=== PATIENT | female | born 1990 | race Caucasian/White ===

== ENCOUNTER 2023-04-29 15:11 | Inpatient (IN) | payer SELFPAY ==
[~2023-04-29] VITALS: Ht 167.6 cm; Wt 141.7 kg
[2023-04-29] MEDS ORDERED: VANCOMYCIN PER PHARMACY 0 MG IV SCH ×2 (15:45→17:15)
[2023-04-29] MEDS ORDERED: PIPERACILLIN-TAZOB 3.375GM 100 ML IV ONE (15:45)
[2023-04-29] MEDS ORDERED: ONDANSETRON ODT 4 MG TAB PO ONE (15:45)
[2023-04-29] MEDS ORDERED: HYDROcodone-ACET 10/325MG TAB PO ONE (15:45)
[2023-04-29 16:17] LABS: Basophils # (auto) 0.1 10 ^3/uL (0-0.2); Basophils % (auto) 0.3 % (0.0-2.0); Eosinophils # (auto) 0 10 ^3/uL (0-0.8); Hematocrit 34.8 % (36.0-46.0); Hemoglobin 11.6 g/dL (12.2-16.2); Mean Corpuscular Hemoglobin 27.6 pg (28.0-32.0); Mean Corpuscular Hgb Conc. 33.4 g/dL (32.0-36.0); Mean Corpuscular Volume 82.8 fL (80.0-100.0); Monocytes # (auto) 0.9 10 ^3/uL (0-1.3); Monocytes % (auto) 5.1 % (0.0-12.0); Neutrophils # (auto) 15.1 10 ^3/uL (1.6-8.6); Neutrophils % (auto) 88.6 % (37.0-80.0); Red Cell Distribution Width 13.2 % (11.8-14.3)
[2023-04-29 16:35] LABS: Alanine Aminotransferase 31 U/L (7-40); Alkaline Phosphatase 167 U/L (46-116); Anion Gap 7 (5-15); Aspartate Aminotransferase 20 U/L (13-40); Blood Urea Nitrogen 29 mg/dL (9-23); Calcium 7.7 mg/dL (8.7-10.4); Carbon Dioxide 20 mmol/L (20-30); Chloride 100 mmol/L (98-107); Glucose 328 mg/dL (74-106); Lipase 32 U/L (12-53); Potassium 3.9 mmol/L (3.5-5.1); Sodium 127 mmol/L (136-145)
[2023-04-29 16:36] LABS: Bilirubin, Total 0.6 mg/dL (0.2-1.0)
[2023-04-29] MEDS ORDERED: INSULIN LISPRO (HUMAN) 100 UNITS/ML ML SC ONE (17:00)
[2023-04-29] MEDS ORDERED: SODIUM CHLORIDE 0.9% 1,000 ML IV ONE ×2 (17:00→17:45)
[2023-04-29] MEDS ORDERED: DEXTROSE (50%) 50ML SYRG IV PRN (17:15)
[2023-04-29] MEDS ORDERED: VANCOMYCIN 1GM/200ML 200 ML IV ONE (17:30)
[2023-04-29 17:38] LABS: Triglycerides 120 mg/dL (< 150)
[2023-04-29 17:39] LABS: LDL Cholesterol 97 mg/dL (< 100)
[2023-04-29 17:40] LABS: Cholesterol 141 mg/dL (< 200); HDL Cholesterol 26 mg/dL (40-59)
[2023-04-29] MEDS ORDERED: CALCIUM GLUC 1,000mg/50ml-NS 50 ML IV ONE (17:45)
[2023-04-29] MEDS ORDERED: ACETAMINOPHEN 325 MG TAB PO PRN (17:45)
[2023-04-29] MEDS ORDERED: FUROSEMIDE 20 MG/2 ML VIAL IV ONE (18:15)
[2023-04-29] MEDS ORDERED: IOHEXOL 350 MG/ML 100ML IJ ONE (21:20)
[2023-04-29] MEDS: HYDROcodone-ACET 5/325MG TAB PO PRN (23:36)
[2023-04-29] MEDS: ASCORBIC ACID 500 MG TAB PO SCH (23:39)
[2023-04-29] MEDS: ACCU-CHEK COMFORT CURVE STRIP VI SCH (23:45)
[2023-04-29] MEDS: InsuLIN REG 1unit/0.01ml Soln (100units/ml) SC SCH (23:52)
[2023-04-30] MEDS: SODIUM CHLORIDE 0.9% 1,000 ML IV SCH ×3 (01:29→20:25)
[2023-04-30] MEDS: PIPERACILLIN-TAZOB 3.375GM 100 ML IV SCH ×3 (01:55→16:40)
[2023-04-30 06:05] LABS: Basophils # (auto) 0.1 10 ^3/uL (0-0.2); Basophils % (auto) 0.4 % (0.0-2.0); Eosinophils # (auto) 0 10 ^3/uL (0-0.8); Eosinophils % (auto) 0.1 % (0.0-7.0); Hematocrit 32.3 % (36.0-46.0); Hemoglobin 10.8 g/dL (12.2-16.2); Lymphocytes # (auto) 1.5 10 ^3/uL (0.4-5.4); Lymphocytes % (auto) 7.6 % (10.0-50.0); Mean Corpuscular Hemoglobin 27.6 pg (28.0-32.0); Mean Corpuscular Hgb Conc. 33.4 g/dL (32.0-36.0); Mean Corpuscular Volume 82.6 fL (80.0-100.0); Monocytes # (auto) 1.3 10 ^3/uL (0-1.3); Monocytes % (auto) 6.9 % (0.0-12.0); Neutrophils # (auto) 16.5 10 ^3/uL (1.6-8.6); Red Blood Cells 3.92 10^6/uL (4.0-5.20); Red Cell Distribution Width 13.6 % (11.8-14.3); White Blood Cell 19.3 10^3/uL (4.4-10.8)
[2023-04-30 06:26] LABS: Alanine Aminotransferase 27 U/L (7-40); Albumin 2.9 g/dL (3.2-4.8); Alkaline Phosphatase 154 U/L (46-116); Anion Gap 8 (5-15); Aspartate Aminotransferase 23 U/L (13-40); BUN/Creatinine Ratio 18.7 (10.0-20.0); Blood Urea Nitrogen 23 mg/dL (9-23); Calcium 7.8 mg/dL (8.7-10.4); Carbon Dioxide 19 mmol/L (20-30); Chloride 99 mmol/L (98-107); Glucose 172 mg/dL (74-106); Potassium 3.6 mmol/L (3.5-5.1); Sodium 126 mmol/L (136-145)
[2023-04-30 06:27] LABS: Bilirubin, Total 0.7 mg/dL (0.2-1.0); Total Protein 6.2 g/dL (5.7-8.2)
[2023-04-30] MEDS: ACCU-CHEK COMFORT CURVE STRIP VI SCH ×4 (06:43→21:53)
[2023-04-30] MEDS: InsuLIN REG 1unit/0.01ml Soln (100units/ml) SC SCH ×4 (06:43→21:49)
[2023-04-30] MEDS: ZINC SULFATE 220mg CAP or TAB PO SCH (10:31)
[2023-04-30] MEDS: MULTIPLE VITAMIN TAB PO SCH (10:31)
[2023-04-30] MEDS: HYDROcodone-ACET 5/325MG TAB PO PRN ×2 (10:31→21:26)
[2023-04-30] MEDS: ASCORBIC ACID 500 MG TAB PO SCH ×2 (10:31→21:26)
[2023-04-30] MEDS ORDERED: VANCOMYCIN PER PHARMACY 0 MG IV SCH (12:00)
[2023-04-30] MEDS: VANCOMYCIN 1GM/200ML 200 ML IV SCH ×2 (12:25→23:02)
[2023-04-30 16:26] VITALS: PULSE 116; RESP 19; O2SAT 99
[2023-04-30 17:13] VITALS: BP 161/93; PULSE 116; RESP 19; TEMP 98.6; O2SAT 99
[2023-04-30 20:00] VITALS: BP 147/71; PULSE 74; RESP 74; TEMP 37
[2023-04-30 22:00] VITALS: BP 155/97; PULSE 111; RESP 16; TEMP 99.4; O2SAT 97
[2023-05-01 05:00] VITALS: BP 133/69; PULSE 108; RESP 18; TEMP 98.4; O2SAT 99
[2023-05-01] MEDS: InsuLIN REG 1unit/0.01ml Soln (100units/ml) SC SCH ×4 (05:20→22:16)
[2023-05-01] MEDS: ACCU-CHEK COMFORT CURVE STRIP VI SCH ×4 (05:25→22:03)
[2023-05-01] MEDS: HYDROcodone-ACET 5/325MG TAB PO PRN ×2 (05:30→17:28)
[2023-05-01 07:30] LABS: Basophils # (auto) 0.1 10 ^3/uL (0-0.2); Basophils % (auto) 0.3 % (0.0-2.0); Eosinophils # (auto) 0 10 ^3/uL (0-0.8); Eosinophils % (auto) 0.2 % (0.0-7.0); Hematocrit 31.1 % (36.0-46.0); Hemoglobin 10.2 g/dL (12.2-16.2); Lymphocytes % (auto) 5.7 % (10.0-50.0); Mean Corpuscular Hemoglobin 27.8 pg (28.0-32.0); Mean Corpuscular Hgb Conc. 32.9 g/dL (32.0-36.0); Mean Corpuscular Volume 84.5 fL (80.0-100.0); Monocytes % (auto) 5.7 % (0.0-12.0); Neutrophils # (auto) 15.7 10 ^3/uL (1.6-8.6); Neutrophils % (auto) 88.1 % (37.0-80.0); Red Blood Cells 3.69 10^6/uL (4.0-5.20); Red Cell Distribution Width 13.3 % (11.8-14.3); White Blood Cell 17.8 10^3/uL (4.4-10.8)
[2023-05-01 07:49] LABS: Alanine Aminotransferase 31 U/L (7-40); Albumin 2.7 g/dL (3.2-4.8); Alkaline Phosphatase 153 U/L (46-116); Anion Gap 11 (5-15); Aspartate Aminotransferase 23 U/L (13-40); BUN/Creatinine Ratio 13.2 (10.0-20.0); Bilirubin, Total 0.4 mg/dL (0.2-1.0); Blood Urea Nitrogen 25 mg/dL (9-23); Calcium 7.6 mg/dL (8.5-10.1); Carbon Dioxide 16 mmol/L (20-30); Chloride 100 mmol/L (98-107); Glucose 139 mg/dL (74-106); Potassium 3.5 mmol/L (3.5-5.1); Sodium 127 mmol/L (136-145)
[2023-05-01 07:50] LABS: Total Protein 5.6 g/dL (5.7-8.2)
[2023-05-01 09:00] VITALS: BP 137/77; PULSE 95; RESP 20; TEMP 98.7; O2SAT 97
[2023-05-01] MEDS: MULTIPLE VITAMIN TAB PO SCH (09:28)
[2023-05-01] MEDS: ASCORBIC ACID 500 MG TAB PO SCH ×2 (09:29→22:15)
[2023-05-01] MEDS: PIPERACILLIN-TAZOB 3.375GM 100 ML IV SCH ×3 (09:29→17:19)
[2023-05-01] MEDS: ZINC SULFATE 220mg CAP or TAB PO SCH (09:29)
[2023-05-01] MEDS: SODIUM CHLORIDE 0.9% 1,000 ML IV SCH (09:30)
[2023-05-01] MEDS: DAKINS QUARTER STR 0.125% (NaHypochlorite) 473 ML TOPICAL SOL TOP SCH (09:36)
[2023-05-01 12:35] LABS: INR 1.09 (0.9-1.15); Partial Thromboplastin Time 28.2 SEC (24.5-34.5); Prothrombin Time 11.4 sec (9.3-11.8)
[2023-05-01 13:00] VITALS: BP 135/67; PULSE 100; RESP 20; TEMP 98.7; O2SAT 98
[2023-05-01] MEDS: SOD CHL 0.45% WITH 20MEQ KCL 1,000 ML IV SCH ×2 (14:34→19:50)
[2023-05-01] MEDS: LINEZOLID 600MG/300ML 300 ML IV SCH ×2 (14:35→22:15)
[2023-05-01 14:58] LABS: Urine Epithelial Cast None Seen /hpf (<5)
[2023-05-01 15:18] LABS: Urine Bacteria MANY /hpf (None Seen); Urine Blood 3+ /uL (Negative); Urine Clarity CLOUDY (Clear); Urine Color Yellow (Yellow); Urine Protein, UAD 3+ (Negative); Urine Specific Gravity 1.025 (1.001-1.035); Urine WBC 13 /hpf (0 - 5); Urine WBC Clumps PRESENT /hpf (None Seen); Urine pH 5.5 (5.0-8.0)
[2023-05-01 17:00] VITALS: BP 142/76; PULSE 94; RESP 22; TEMP 98.9; O2SAT 95
[2023-05-01] MEDS: ONDANSETRON HCL 4 MG/2 ML VIAL IV PRN (17:28)
[2023-05-01 20:00] VITALS: BP 147/71; PULSE 99; RESP 20; TEMP 37; O2SAT 100
[2023-05-01 22:00] VITALS: BP 118/67; PULSE 99; RESP 20; TEMP 97.9; O2SAT 100
[2023-05-02] MEDS: PIPERACILLIN-TAZOB 3.375GM 100 ML IV SCH ×3 (00:30→18:21)
[2023-05-02] MEDS: SOD CHL 0.45% WITH 20MEQ KCL 1,000 ML IV SCH ×3 (04:10→20:50)
[2023-05-02 05:00] VITALS: BP 131/73; PULSE 94; RESP 18; TEMP 97.6; O2SAT 97
[2023-05-02 05:10] LABS: Basophils # (auto) 0.1 10 ^3/uL (0-0.2); Basophils % (auto) 0.4 % (0.0-2.0); Eosinophils # (auto) 0.1 10 ^3/uL (0-0.8); Eosinophils % (auto) 0.8 % (0.0-7.0); Hematocrit 30.7 % (36.0-46.0); Hemoglobin 10.2 g/dL (12.2-16.2); Lymphocytes # (auto) 1.4 10 ^3/uL (0.4-5.4); Mean Corpuscular Hemoglobin 27.6 pg (28.0-32.0); Mean Corpuscular Hgb Conc. 33.3 g/dL (32.0-36.0); Mean Corpuscular Volume 82.8 fL (80.0-100.0); Monocytes % (auto) 5.7 % (0.0-12.0); Neutrophils # (auto) 14.4 10 ^3/uL (1.6-8.6); Neutrophils % (auto) 85.1 % (37.0-80.0); Red Cell Distribution Width 13.4 % (11.8-14.3)
[2023-05-02 05:36] LABS: Alanine Aminotransferase 31 U/L (7-40); Albumin 2.7 g/dL (3.2-4.8); Alkaline Phosphatase 172 U/L (46-116); Anion Gap 11 (5-15); Aspartate Aminotransferase 20 U/L (13-40); BUN/Creatinine Ratio 12.1 (10.0-20.0); Bilirubin, Total 0.4 mg/dL (0.2-1.0); Blood Urea Nitrogen 26 mg/dL (9-23); Calcium 7.7 mg/dL (8.5-10.1); Carbon Dioxide 16 mmol/L (20-30); Chloride 98 mmol/L (98-107); Glucose 166 mg/dL (74-106); Potassium 3.5 mmol/L (3.5-5.1); Sodium 125 mmol/L (136-145); Total Protein 5.8 g/dL (5.7-8.2)
[2023-05-02] MEDS: ACCU-CHEK COMFORT CURVE STRIP VI SCH ×4 (06:36→21:57)
[2023-05-02] MEDS: InsuLIN REG 1unit/0.01ml Soln (100units/ml) SC SCH ×4 (06:39→22:14)
[2023-05-02] MEDS: ONDANSETRON HCL 4 MG/2 ML VIAL IV PRN ×2 (06:42)
[2023-05-02 09:00] VITALS: BP 133/83; PULSE 94; RESP 16; TEMP 97.9; O2SAT 98
[2023-05-02] MEDS: ENOXAPARIN SOD 40 MG/0.4 ML SYRINGE SC SCH (10:00)
[2023-05-02] MEDS: ASCORBIC ACID 500 MG TAB PO SCH ×2 (10:00→21:57)
[2023-05-02] MEDS: DAKINS QUARTER STR 0.125% (NaHypochlorite) 473 ML TOPICAL SOL TOP SCH (10:00)
[2023-05-02] MEDS ORDERED: ONDANSETRON HCL 4 MG/2 ML VIAL ONE (11:39)
[2023-05-02] MEDS ORDERED: fentaNYL CITRATE 100 MCG/2 ML VL ONE (11:39)
[2023-05-02] MEDS ORDERED: MIDAZOLAM HCL 2MG/2ML 2ml VIAL (1mg/ml) ONE (11:39)
[2023-05-02] MEDS ORDERED: MEPERIDINE HCL (25 MG/ML) 1ML VIAL ONE (11:39)
[2023-05-02] MEDS ORDERED: ROCURONIUM 10MG/ML 10ML VIAL IV ONE (11:39)
[2023-05-02] MEDS ORDERED: DexAMETHasone SOD PHOS 10MG/1ML VIAL INJ ONE (11:39)
[2023-05-02] MEDS ORDERED: KETAMINE 50mg/ML 1ml syringe ONE (11:39)
[2023-05-02] MEDS ORDERED: SODIUM CHLORIDE LOCK 20 ML ONE (11:39)
[2023-05-02] MEDS ORDERED: PROPOFOL 10 MG/ML 20 ML IV ONE (11:39)
[2023-05-02] MEDS ORDERED: METOCLOPRAMIDE HCL 5MG/ml INJ 2ml VIAL IV PRN (12:15)
[2023-05-02] MEDS ORDERED: ACCU-CHEK COMFORT CURVE STRIP VI ONE (12:15)
[2023-05-02] MEDS ORDERED: MORPHINE SULFATE INJ 2 MG/ml SYRG IV PRN (12:15)
[2023-05-02] MEDS ORDERED: HYDROmorphone HCL 2 MG/ML VL/or syr IV PRN ×2 (12:15)
[2023-05-02 12:34] VITALS: PULSE 99; RESP 20; O2SAT 98
[2023-05-02] MEDS: LINEZOLID 600MG/300ML 300 ML IV SCH ×2 (14:35→22:03)
[2023-05-02] MEDS: MULTIPLE VITAMIN TAB PO SCH (14:35)
[2023-05-02] MEDS: ZINC SULFATE 220mg CAP or TAB PO SCH (14:35)
[2023-05-02 17:00] VITALS: BP 138/71; PULSE 97; RESP 16; TEMP 97.7; O2SAT 97
[2023-05-02] MEDS: FUROSEMIDE 40 MG/4 ML VIAL IV SCH (18:21)
[2023-05-02 20:00] VITALS: PULSE 99; RESP 22; O2SAT 98
[2023-05-02 22:00] VITALS: BP 129/65; PULSE 99; RESP 22; TEMP 97.6; O2SAT 98
[2023-05-02] MEDS: HYDROcodone-ACET 5/325MG TAB PO PRN ×2 (22:16)
[2023-05-03] VITALS (7 sets, daily range): BP systolic 116–141; BP diastolic 63–98; PULSE 86–92; RESP 16–22; TEMP 97.2–98.6; O2SAT 97–99
[2023-05-03] MEDS: PIPERACILLIN-TAZOB 3.375GM 100 ML IV SCH ×3 (00:30→21:16)
[2023-05-03] MEDS: HYDROcodone-ACET 5/325MG TAB PO PRN ×4 (04:42→22:12)
[2023-05-03] MEDS: FUROSEMIDE 40 MG/4 ML VIAL IV SCH ×2 (05:28→18:38)
[2023-05-03] MEDS: SOD CHL 0.45% WITH 20MEQ KCL 1,000 ML IV SCH ×3 (05:28→21:16)
[2023-05-03] MEDS: InsuLIN REG 1unit/0.01ml Soln (100units/ml) SC SCH ×4 (06:29→21:25)
[2023-05-03] MEDS: ACCU-CHEK COMFORT CURVE STRIP VI SCH ×4 (06:30→21:18)
[2023-05-03 06:34] LABS: Basophils # (auto) 0 10 ^3/uL (0-0.2); Basophils % (auto) 0.3 % (0.0-2.0); Eosinophils # (auto) 0.1 10 ^3/uL (0-0.8); Hematocrit 27.9 % (36.0-46.0); Hemoglobin 9.6 g/dL (12.2-16.2); Lymphocytes # (auto) 1.2 10 ^3/uL (0.4-5.4); Lymphocytes % (auto) 8.2 % (10.0-50.0); Mean Corpuscular Hemoglobin 28.5 pg (28.0-32.0); Mean Corpuscular Hgb Conc. 34.3 g/dL (32.0-36.0); Mean Corpuscular Volume 83.2 fL (80.0-100.0); Monocytes % (auto) 6.7 % (0.0-12.0); Neutrophils # (auto) 11.8 10 ^3/uL (1.6-8.6); Neutrophils % (auto) 83.8 % (37.0-80.0); Red Blood Cells 3.35 10^6/uL (4.0-5.20); Red Cell Distribution Width 13.5 % (11.8-14.3); White Blood Cell 14.1 10^3/uL (4.4-10.8)
[2023-05-03 06:43] LABS: Alanine Aminotransferase 26 U/L (7-40); Albumin 2.6 g/dL (3.2-4.8); Alkaline Phosphatase 141 U/L (46-116); Anion Gap 11 (5-15); Aspartate Aminotransferase 11 U/L (13-40); BUN/Creatinine Ratio 14.1 (10.0-20.0); Blood Urea Nitrogen 24 mg/dL (9-23); Calcium 7.5 mg/dL (8.7-10.4); Carbon Dioxide 15 mmol/L (20-30); Chloride 100 mmol/L (98-107); Glucose 198 mg/dL (74-106); Magnesium 1.9 mg/dL (1.6-2.6); Potassium 3.6 mmol/L (3.5-5.1); Sodium 126 mmol/L (136-145)
[2023-05-03 06:44] LABS: Bilirubin, Total 0.3 mg/dL (0.2-1.0); Total Protein 5.4 g/dL (5.7-8.2)
[2023-05-03] MEDS ORDERED: PIPERACILLIN-TAZOB 3.375GM 100 ML IV ONE ×2 (08:45)
[2023-05-03] MEDS: MULTIPLE VITAMIN TAB PO SCH (09:58)
[2023-05-03] MEDS: ASCORBIC ACID 500 MG TAB PO SCH ×2 (09:58→21:18)
[2023-05-03] MEDS: ZINC SULFATE 220mg CAP or TAB PO SCH (09:58)
[2023-05-03] MEDS: ENOXAPARIN SOD 40 MG/0.4 ML SYRINGE SC SCH (09:59)
[2023-05-03] MEDS: DAKINS QUARTER STR 0.125% (NaHypochlorite) 473 ML TOPICAL SOL TOP SCH (10:00)
[2023-05-03] MEDS: LINEZOLID 600MG/300ML 300 ML IV SCH (10:00)
[2023-05-03] MEDS: HYDROcodone-ACET 10/325MG TAB PO PRN (23:43)
[2023-05-04] VITALS (7 sets, daily range): BP systolic 115–146; BP diastolic 70–85; PULSE 85–97; RESP 18; TEMP 97.4–98.4; O2SAT 96–99
[2023-05-04] MEDS: LINEZOLID 600MG/300ML 300 ML IV SCH ×2 (01:56→12:32)
[2023-05-04] MEDS: PIPERACILLIN-TAZOB 3.375GM 100 ML IV SCH ×3 (05:58→22:13)
[2023-05-04] MEDS: SOD CHL 0.45% WITH 20MEQ KCL 1,000 ML IV SCH ×3 (05:59→22:50)
[2023-05-04] MEDS: ACCU-CHEK COMFORT CURVE STRIP VI SCH ×4 (05:59→22:13)
[2023-05-04] MEDS: FUROSEMIDE 40 MG/4 ML VIAL IV SCH (05:59)
[2023-05-04] MEDS: InsuLIN REG 1unit/0.01ml Soln (100units/ml) SC SCH ×4 (06:25→22:14)
[2023-05-04] MEDS: ZINC SULFATE 220mg CAP or TAB PO SCH (09:40)
[2023-05-04] MEDS: MULTIPLE VITAMIN TAB PO SCH (09:40)
[2023-05-04] MEDS: ASCORBIC ACID 500 MG TAB PO SCH ×2 (09:40→22:13)
[2023-05-04 09:59] LABS: Basophils # (auto) 0.1 10 ^3/uL (0-0.2); Basophils % (auto) 0.6 % (0.0-2.0); Eosinophils # (auto) 0.2 10 ^3/uL (0-0.8); Eosinophils % (auto) 1.6 % (0.0-7.0); Hematocrit 32.3 % (36.0-46.0); Hemoglobin 10.9 g/dL (12.2-16.2); Lymphocytes # (auto) 1.1 10 ^3/uL (0.4-5.4); Mean Corpuscular Hemoglobin 28.5 pg (28.0-32.0); Mean Corpuscular Hgb Conc. 33.8 g/dL (32.0-36.0); Mean Corpuscular Volume 84.2 fL (80.0-100.0); Monocytes # (auto) 0.6 10 ^3/uL (0-1.3); Neutrophils # (auto) 7.8 10 ^3/uL (1.6-8.6); Neutrophils % (auto) 80.8 % (37.0-80.0); Red Blood Cells 3.83 10^6/uL (4.0-5.20); Red Cell Distribution Width 13.6 % (11.8-14.3); White Blood Cell 9.6 10^3/uL (4.4-10.8)
[2023-05-04 10:28] LABS: Alanine Aminotransferase 27 U/L (7-40); Alkaline Phosphatase 153 U/L (46-116); Anion Gap 8 (5-15); Aspartate Aminotransferase 22 U/L (13-40); BUN/Creatinine Ratio 15.2 (10.0-20.0); Bilirubin, Total 0.3 mg/dL (0.2-1.0); Blood Urea Nitrogen 19 mg/dL (9-23); Calcium 8.3 mg/dL (8.5-10.1); Carbon Dioxide 22 mmol/L (20-30); Chloride 100 mmol/L (98-107); Glucose 186 mg/dL (74-106); Potassium 3.8 mmol/L (3.5-5.1); Sodium 130 mmol/L (136-145); Total Protein 6.2 g/dL (5.7-8.2)
[2023-05-04 10:36] LABS: CRP High Sensitivity 6.59 mg/dL (<1.0)
[2023-05-04] MEDS: DAKINS QUARTER STR 0.125% (NaHypochlorite) 473 ML TOPICAL SOL TOP SCH (12:33)
[2023-05-04] MEDS: MORPHINE SULFATE INJ 2 MG/ml SYRG IV PRN (14:38)
[2023-05-04] MEDS: HYDROcodone-ACET 10/325MG TAB PO PRN (20:28)
[2023-05-05] VITALS (7 sets, daily range): BP systolic 104–157; BP diastolic 58–88; PULSE 77–100; RESP 16–20; TEMP 97.5–98.1; O2SAT 94–99
[2023-05-05] MEDS: LINEZOLID 600MG/300ML 300 ML IV SCH ×2 (02:47→14:36)
[2023-05-05] MEDS: MORPHINE SULFATE INJ 2 MG/ml SYRG IV PRN ×2 (04:44→14:47)
[2023-05-05] MEDS: PIPERACILLIN-TAZOB 3.375GM 100 ML IV SCH ×2 (06:09→14:35)
[2023-05-05] MEDS: ACCU-CHEK COMFORT CURVE STRIP VI SCH ×4 (06:24→22:00)
[2023-05-05] MEDS: InsuLIN REG 1unit/0.01ml Soln (100units/ml) SC SCH ×3 (06:26→17:00)
[2023-05-05] MEDS: HYDROcodone-ACET 10/325MG TAB PO PRN ×2 (06:27→18:33)
[2023-05-05] MEDS: SOD CHL 0.45% WITH 20MEQ KCL 1,000 ML IV SCH (06:29)
[2023-05-05 09:20] LABS: Basophils # (auto) 0.1 10 ^3/uL (0-0.2); Eosinophils # (auto) 0.2 10 ^3/uL (0-0.8); Hemoglobin 10.7 g/dL (12.2-16.2); Monocytes # (auto) 0.6 10 ^3/uL (0-1.3); Monocytes % (auto) 6.5 % (0.0-12.0); Nucleated Red Blood Cells % 0.1 %; Red Cell Distribution Width 13.7 % (11.8-14.3)
[2023-05-05 09:23] LABS: Basophils % (auto) 0.6 % (0.0-2.0); Eosinophils % (auto) 2.2 % (0.0-7.0); Lymphocytes # (auto) 1.6 10 ^3/uL (0.4-5.4); Lymphocytes % (auto) 17.6 % (10.0-50.0); Mean Corpuscular Hemoglobin 28.1 pg (28.0-32.0); Mean Corpuscular Hgb Conc. 33.4 g/dL (32.0-36.0); Mean Corpuscular Volume 84.2 fL (80.0-100.0); Neutrophils # (auto) 6.6 10 ^3/uL (1.6-8.6); Neutrophils % (auto) 73.1 % (37.0-80.0); White Blood Cell 9.1 10^3/uL (4.4-10.8)
[2023-05-05 09:35] LABS: Alanine Aminotransferase 31 U/L (7-40); Alkaline Phosphatase 155 U/L (46-116); Anion Gap 8 (5-15); Aspartate Aminotransferase 32 U/L (13-40); BUN/Creatinine Ratio 15.7 (10.0-20.0); Blood Urea Nitrogen 14 mg/dL (9-23); Calcium 8.5 mg/dL (8.5-10.1); Carbon Dioxide 22 mmol/L (20-30); Chloride 104 mmol/L (98-107); Glucose 172 mg/dL (74-106); Potassium 3.9 mmol/L (3.5-5.1); Sodium 134 mmol/L (136-145)
[2023-05-05 09:36] LABS: Bilirubin, Total 0.3 mg/dL (0.2-1.0); Total Protein 6.3 g/dL (5.7-8.2)
[2023-05-05 09:44] LABS: CRP High Sensitivity 3.84 mg/dL (<1.0)
[2023-05-05] MEDS: DAKINS QUARTER STR 0.125% (NaHypochlorite) 473 ML TOPICAL SOL TOP SCH (10:00)
[2023-05-05] MEDS: ASCORBIC ACID 500 MG TAB PO SCH (12:04)
[2023-05-05] MEDS: FUROSEMIDE 40 MG/4 ML VIAL IV SCH (12:04)
[2023-05-05] MEDS: MULTIPLE VITAMIN TAB PO SCH (12:04)
[2023-05-05] MEDS: ZINC SULFATE 220mg CAP or TAB PO SCH (12:04)
[2023-05-06] VITALS (7 sets, daily range): BP systolic 109–178; BP diastolic 63–94; PULSE 87–98; RESP 16–19; TEMP 97.3–98.6; O2SAT 96–98
[2023-05-06] MEDS: InsuLIN REG 1unit/0.01ml Soln (100units/ml) SC SCH ×5 (00:24→21:30)
[2023-05-06] MEDS: ASCORBIC ACID 500 MG TAB PO SCH ×3 (00:31→21:25)
[2023-05-06] MEDS: PIPERACILLIN-TAZOB 3.375GM 100 ML IV SCH ×5 (00:41→21:15)
[2023-05-06] MEDS: MORPHINE SULFATE INJ 2 MG/ml SYRG IV PRN ×3 (01:05→23:00)
[2023-05-06] MEDS: HYDROcodone-ACET 10/325MG TAB PO PRN ×2 (03:24→15:30)
[2023-05-06 05:14] LABS: Hematocrit 30.2 % (36.0-46.0); Mean Corpuscular Hemoglobin 27.6 pg (28.0-32.0); Mean Corpuscular Hgb Conc. 33.1 g/dL (32.0-36.0); Mean Corpuscular Volume 83.4 fL (80.0-100.0); Red Blood Cells 3.62 10^6/uL (4.0-5.20); Red Cell Distribution Width 13.7 % (11.8-14.3); White Blood Cell 8.6 10^3/uL (4.4-10.8)
[2023-05-06 05:25] LABS: Alanine Aminotransferase 36 U/L (7-40); Albumin 2.8 g/dL (3.2-4.8); Alkaline Phosphatase 148 U/L (46-116); Anion Gap 5 (5-15); Aspartate Aminotransferase 37 U/L (13-40); BUN/Creatinine Ratio 16.3 (10.0-20.0); Blood Urea Nitrogen 13 mg/dL (9-23); Calcium 8.3 mg/dL (8.5-10.1); Carbon Dioxide 24 mmol/L (20-30); Chloride 108 mmol/L (98-107); Glucose 187 mg/dL (74-106); Potassium 4.2 mmol/L (3.5-5.1); Sodium 137 mmol/L (136-145)
[2023-05-06 05:26] LABS: Bilirubin, Total 0.3 mg/dL (0.2-1.0); Total Protein 5.9 g/dL (5.7-8.2)
[2023-05-06 05:34] LABS: CRP High Sensitivity 2.19 mg/dL (<1.0)
[2023-05-06] MEDS: LINEZOLID 600MG/300ML 300 ML IV SCH ×2 (05:49→12:12)
[2023-05-06] MEDS: ACCU-CHEK COMFORT CURVE STRIP VI SCH ×4 (06:01→21:25)
[2023-05-06] MEDS ORDERED: INSULIN LANTUS (GLARGINE) 1 /0.01ml (100units/ml) SC ONE (08:00)
[2023-05-06] MEDS: FUROSEMIDE 40 MG/4 ML VIAL IV SCH ×2 (09:35→17:31)
[2023-05-06] MEDS: MULTIPLE VITAMIN TAB PO SCH (09:35)
[2023-05-06] MEDS: ZINC SULFATE 220mg CAP or TAB PO SCH (09:35)
[2023-05-06 10:38] LABS: Band Neutrophils % (manual) 0; Basophils % (manual) 0 (0.0-2.0); Blast Cells 0; Metamyelocytes % 0; Myelocytes % 0; Promyelocytes % 0; Reactive Lymphocytes 0
[2023-05-06 10:42] LABS: Eosinophils % (manual) 1 (0-7); Lymphocytes % (manual) 24 (10.0-50.0); Monocytes % (manual) 11 (0-12)
[2023-05-06 10:44] LABS: Platelet Estimate Adequate
[2023-05-06] MEDS: hydrALAZINE HCL 20 MG/ML VL IV PRN (17:13)
[2023-05-07] MEDS: HYDROcodone-ACET 10/325MG TAB PO PRN ×2 (00:01→21:06)
[2023-05-07] MEDS: hydrALAZINE HCL 20 MG/ML VL IV PRN ×2 (00:15→14:35)
[2023-05-07] MEDS: LINEZOLID 600MG/300ML 300 ML IV SCH ×2 (01:50→12:53)
[2023-05-07] MEDS: PIPERACILLIN-TAZOB 3.375GM 100 ML IV SCH ×3 (04:59→22:48)
[2023-05-07 05:00] VITALS: BP 148/78; PULSE 105; RESP 20; TEMP 98.1; O2SAT 95
[2023-05-07 05:18] LABS: Basophils # (auto) 0.1 10 ^3/uL (0-0.2); Basophils % (auto) 0.8 % (0.0-2.0); Eosinophils # (auto) 0.2 10 ^3/uL (0-0.8); Eosinophils % (auto) 2.7 % (0.0-7.0); Hematocrit 29.9 % (36.0-46.0); Hemoglobin 10.2 g/dL (12.2-16.2); Lymphocytes # (auto) 2.3 10 ^3/uL (0.4-5.4); Lymphocytes % (auto) 27.7 % (10.0-50.0); Mean Corpuscular Hemoglobin 28.2 pg (28.0-32.0); Mean Corpuscular Hgb Conc. 34.1 g/dL (32.0-36.0); Mean Corpuscular Volume 82.6 fL (80.0-100.0); Monocytes # (auto) 0.5 10 ^3/uL (0-1.3); Monocytes % (auto) 5.9 % (0.0-12.0); Neutrophils # (auto) 5.2 10 ^3/uL (1.6-8.6); Neutrophils % (auto) 62.9 % (37.0-80.0); Nucleated Red Blood Cells % 0.1 %; Red Blood Cells 3.61 10^6/uL (4.0-5.20); Red Cell Distribution Width 13.5 % (11.8-14.3); White Blood Cell 8.3 10^3/uL (4.4-10.8)
[2023-05-07 05:39] LABS: Alanine Aminotransferase 40 U/L (7-40); Albumin 2.8 g/dL (3.2-4.8); Alkaline Phosphatase 145 U/L (46-116); Anion Gap 4 (5-15); Aspartate Aminotransferase 35 U/L (13-40); BUN/Creatinine Ratio 13.6 (10.0-20.0); Bilirubin, Total 0.3 mg/dL (0.2-1.0); Blood Urea Nitrogen 11 mg/dL (9-23); Calcium 8.2 mg/dL (8.5-10.1); Carbon Dioxide 26 mmol/L (20-30); Chloride 107 mmol/L (98-107); Glucose 183 mg/dL (74-106); Potassium 4.3 mmol/L (3.5-5.1); Sodium 137 mmol/L (136-145); Total Protein 5.8 g/dL (5.7-8.2)
[2023-05-07 05:48] LABS: CRP High Sensitivity 1.43 mg/dL (<1.0)
[2023-05-07] MEDS: FUROSEMIDE 40 MG/4 ML VIAL IV SCH ×2 (05:53→17:32)
[2023-05-07 06:02] LABS: Magnesium 1.4 mg/dL (1.6-2.6)
[2023-05-07 06:14] LABS: % Iron Saturation 35.5 % (15-50)
[2023-05-07] MEDS: ACCU-CHEK COMFORT CURVE STRIP VI SCH ×4 (06:17→22:49)
[2023-05-07] MEDS: INSULIN LANTUS (GLARGINE) 1 /0.01ml (100units/ml) SC SCH (06:19)
[2023-05-07] MEDS: InsuLIN REG 1unit/0.01ml Soln (100units/ml) SC SCH ×4 (06:20→22:54)
[2023-05-07] MEDS: MORPHINE SULFATE INJ 2 MG/ml SYRG IV PRN ×3 (06:34→22:49)
[2023-05-07 08:12] VITALS: PULSE 74; RESP 18; O2SAT 94
[2023-05-07 09:00] VITALS: BP 147/80; PULSE 78; RESP 16; TEMP 97.9; O2SAT 92
[2023-05-07] MEDS: MULTIPLE VITAMIN TAB PO SCH (09:49)
[2023-05-07] MEDS: EMPAGLIFLOZIN 10 MG TAB PO SCH (09:49)
[2023-05-07] MEDS: ZINC SULFATE 220mg CAP or TAB PO SCH (09:49)
[2023-05-07] MEDS: ASCORBIC ACID 500 MG TAB PO SCH ×2 (09:50→22:48)
[2023-05-07] MEDS: LISINOPRIL 5 MG TAB PO SCH (09:50)
[2023-05-07 13:00] VITALS: BP 155/87; PULSE 94; RESP 18; TEMP 97.9; O2SAT 97
[2023-05-07 17:00] VITALS: BP 142/78; PULSE 106; RESP 18; TEMP 97.9; O2SAT 95
[2023-05-07 22:20] VITALS: BP 158/89; PULSE 102; RESP 19; TEMP 98; O2SAT 95
[2023-05-08] MEDS: LINEZOLID 600MG/300ML 300 ML IV SCH (02:32)
[2023-05-08 05:00] VITALS: BP 139/70; PULSE 92; RESP 19; TEMP 97.7; O2SAT 95
[2023-05-08] MEDS: MORPHINE SULFATE INJ 2 MG/ml SYRG IV PRN ×3 (06:30→22:52)
[2023-05-08] MEDS: FUROSEMIDE 40 MG/4 ML VIAL IV SCH ×2 (06:31→17:20)
[2023-05-08] MEDS: PIPERACILLIN-TAZOB 3.375GM 100 ML IV SCH (06:31)
[2023-05-08] MEDS: ACCU-CHEK COMFORT CURVE STRIP VI SCH ×4 (06:35→22:52)
[2023-05-08] MEDS: INSULIN LANTUS (GLARGINE) 1 /0.01ml (100units/ml) SC SCH (06:45)
[2023-05-08] MEDS: InsuLIN REG 1unit/0.01ml Soln (100units/ml) SC SCH ×3 (06:45→17:28)
[2023-05-08 08:00] VITALS: RESP 20
[2023-05-08 08:53] VITALS: BP 147/81; PULSE 94; RESP 20; TEMP 97.3; O2SAT 93
[2023-05-08] MEDS: ZINC SULFATE 220mg CAP or TAB PO SCH (09:12)
[2023-05-08] MEDS: MULTIPLE VITAMIN TAB PO SCH (09:13)
[2023-05-08] MEDS: ASCORBIC ACID 500 MG TAB PO SCH ×2 (09:13→22:51)
[2023-05-08] MEDS: LISINOPRIL 5 MG TAB PO SCH (09:14)
[2023-05-08] MEDS: EMPAGLIFLOZIN 10 MG TAB PO SCH (09:14)
[2023-05-08] MEDS ORDERED: FLUCONAZOLE 200MG/100ML 100 ML IV SCH (10:00)
[2023-05-08 13:00] VITALS: BP 152/82; PULSE 93; RESP 20; TEMP 97.9; O2SAT 96
[2023-05-08] MEDS: metroNIDAZOLE 500 MG TAB PO SCH ×2 (13:57→22:51)
[2023-05-08] MEDS ORDERED: DEXTROSE (50%) 50ML SYRG IV PRN (14:00)
[2023-05-08] MEDS ORDERED: MAGNESIUM SULFATE 1GM/100ML 100 ML IV ONE (15:15)
[2023-05-08 17:00] VITALS: BP 137/75; PULSE 100; RESP 20; TEMP 97.6; O2SAT 94
[2023-05-08] MEDS: HYDROcodone-ACET 10/325MG TAB PO PRN (20:41)
[2023-05-08 22:00] VITALS: BP 147/87; PULSE 98; RESP 20; TEMP 98.6; O2SAT 99
[2023-05-08] MEDS ORDERED: InsuLIN REG 1unit/0.01ml Soln (100units/ml) SC SCH (22:00)
[2023-05-08] MEDS: CIPROFLOXACIN HCL 500 MG TAB PO SCH (22:51)
[2023-05-09 05:00] VITALS: BP 157/80; PULSE 90; RESP 18; TEMP 98.2; O2SAT 99
[2023-05-09] MEDS: MORPHINE SULFATE INJ 2 MG/ml SYRG IV PRN ×2 (05:44→11:18)
[2023-05-09] MEDS: FUROSEMIDE 40 MG/4 ML VIAL IV SCH (06:18)
[2023-05-09] MEDS: metroNIDAZOLE 500 MG TAB PO SCH ×2 (06:18→15:44)
[2023-05-09] MEDS: ACCU-CHEK COMFORT CURVE STRIP VI SCH ×2 (06:18→11:07)
[2023-05-09] MEDS: INSULIN LANTUS (GLARGINE) 1 /0.01ml (100units/ml) SC SCH (06:33)
[2023-05-09] MEDS: InsuLIN REG 1unit/0.01ml Soln (100units/ml) SC SCH ×2 (06:34→16:00)
[2023-05-09 06:44] LABS: Basophils # (auto) 0 10 ^3/uL (0-0.2); Basophils % (auto) 0.6 % (0.0-2.0); Eosinophils # (auto) 0.2 10 ^3/uL (0-0.8); Eosinophils % (auto) 2.6 % (0.0-7.0); Hematocrit 31.8 % (36.0-46.0); Hemoglobin 10.4 g/dL (12.2-16.2); Lymphocytes # (auto) 2.1 10 ^3/uL (0.4-5.4); Lymphocytes % (auto) 27.9 % (10.0-50.0); Mean Corpuscular Hemoglobin 27.7 pg (28.0-32.0); Mean Corpuscular Hgb Conc. 32.8 g/dL (32.0-36.0); Mean Corpuscular Volume 84.6 fL (80.0-100.0); Monocytes # (auto) 0.6 10 ^3/uL (0-1.3); Monocytes % (auto) 7.4 % (0.0-12.0); Neutrophils # (auto) 4.6 10 ^3/uL (1.6-8.6); Neutrophils % (auto) 61.5 % (37.0-80.0); Red Blood Cells 3.76 10^6/uL (4.0-5.20); Red Cell Distribution Width 13.6 % (11.8-14.3); White Blood Cell 7.5 10^3/uL (4.4-10.8)
[2023-05-09 06:51] LABS: Alanine Aminotransferase 28 U/L (7-40); Alkaline Phosphatase 130 U/L (46-116); Anion Gap 7 (5-15); Aspartate Aminotransferase 19 U/L (13-40); BUN/Creatinine Ratio 8.5 (10.0-20.0); Bilirubin, Total 0.3 mg/dL (0.2-1.0); Blood Urea Nitrogen 8 mg/dL (9-23); CRP High Sensitivity 0.97 mg/dL (<1.0); Calcium 8.6 mg/dL (8.5-10.1); Carbon Dioxide 25 mmol/L (20-30); Chloride 105 mmol/L (98-107); Glucose 172 mg/dL (74-106); Potassium 3.9 mmol/L (3.5-5.1); Sodium 137 mmol/L (136-145)
[2023-05-09] MEDS ORDERED: INSULIN LANTUS (GLARGINE) 1 /0.01ml (100units/ml) SC SCH (07:15)
[2023-05-09 08:00] VITALS: RESP 20
[2023-05-09 08:45] VITALS: BP 119/80; PULSE 95; RESP 18; TEMP 98; O2SAT 96
[2023-05-09] MEDS ORDERED: FLUCONAZOLE 100 MG TAB PO SCH (10:00)
[2023-05-09] MEDS ORDERED: METF-372 PO (11:02)
[2023-05-09] MEDS ORDERED: LISI20TA56 PO (11:02)
[2023-05-09] MEDS ORDERED: MULTTAB99 PO (11:02)
[2023-05-09] MEDS ORDERED: HYDR-4798 PO (11:02)
[2023-05-09] MEDS ORDERED: INSLANTI SC (11:02)
[2023-05-09] MEDS ORDERED: MET500T PO (11:02)
[2023-05-09] MEDS ORDERED: FLUC100T34 PO (11:02)
[2023-05-09] MEDS: ASCORBIC ACID 500 MG TAB PO SCH (11:04)
[2023-05-09] MEDS: LISINOPRIL 5 MG TAB PO SCH (11:05)
[2023-05-09] MEDS: ZINC SULFATE 220mg CAP or TAB PO SCH (11:06)
[2023-05-09] MEDS: CIPROFLOXACIN HCL 500 MG TAB PO SCH (11:07)
[2023-05-09] MEDS: MULTIPLE VITAMIN TAB PO SCH (11:07)
[2023-05-09 13:00] VITALS: BP 152/82; PULSE 91; RESP 18; TEMP 97.8; O2SAT 96
[2023-05-09 15:54] VITALS: BP 119/80
== END 2023-05-09 17:50 | disposition home or self-care (01) | DRG 853 ==
LOC: ER 15:11 → OVERFLOW 17:37 → CENTRAL 04-30 15:44
PROVIDERS: ADMIT Internal Medicine; ATTEND Internal Medicine
PROC: 0JBC0ZZ Excision of Pelvic Region Subcutaneous Tissue and Fascia, Open Approach (ICD-10-PCS; principal; 2023-05-02 11:35)
DX: A41.9 Sepsis, unspecified organism (principal); I21.A1 Myocardial infarction type 2; N17.0 Acute kidney failure with tubular necrosis; I50.43 Acute on chronic combined systolic (congestive) and diastolic (congestive) heart failure; E87.1 Hypo-osmolality and hyponatremia; E44.0 Moderate protein-calorie malnutrition; N39.0 Urinary tract infection, site not specified; L03.314 Cellulitis of groin; Z68.43 Body mass index [BMI] 50.0-59.9, adult; E11.65 Type 2 diabetes mellitus with hyperglycemia; D64.9 Anemia, unspecified; E66.01 Morbid (severe) obesity due to excess calories; E83.51 Hypocalcemia; I11.0 Hypertensive heart disease with heart failure; Z90.49 Acquired absence of other specified parts of digestive tract
CPT/HCPCS: 36415; 74177; 80053; 80061; 80202; 81001; 81025; 82728; 82962; 83036; 83540; 83550; 83605; 83690; 83735; 83880; 84443; 84484; 84702; 85007; 85025; 85027; 85610; 85730; 86141; 87040; 87070; 87075; 87076; 87086; 87088; 87186; 87205; 93306; 93970; 97163; G0378; J1100; J1450; J1815; J2250; J2405; J2543; J2704